=== PATIENT | male | born 1950 | race Caucasian/White ===

== ENCOUNTER 2024-03-30 16:19 | Inpatient (IN) | payer MEDICARE, OTHER ==
[~2024-03-30] VITALS: Ht 185.4 cm; Wt 69.4 kg
[~2024-03-30 16:19] MED LIST: ASPI-1169 PO; DIGO125T PO; METO-357 PO; RIVA10TA PO
[2024-03-30 17:15] LABS: BASOPHILS # (AUTO) 0.1 K/uL (0.0-0.2); BASOPHILS % (AUTO) 0.8 % (0.0-2.0); EOSINOPHILS # (AUTO) 0.1 K/uL (0.0-0.7); EOSINOPHILS % (AUTO) 2.3 % (0.0-6.0); HEMATOCRIT 39 % (39-51); LYMPHOCYTES # (AUTO) 1.6 K/uL (0.8-4.8); LYMPHOCYTES % (AUTO) 25.4 % (20.0-44.0); MEAN CORPUSCULAR HEMOGLOBIN 29 PG (26.0-33.0); MEAN CORPUSCULAR HGB CONC 33 g/dl (31.0-36.0); MEAN CORPUSCULAR VOLUME 86 fL (80-96); MONOCYTES # (AUTO) 0.9 K/uL (0.1-1.30); MONOCYTES % (AUTO) 13.7 % (2.0-12.0); NEUTROPHILS # (AUTO) 3.7 K/uL (1.8-8.9); NEUTROPHILS % (AUTO) 57.8 % (43.0-81.0); PLATELET COUNT (AUTO) 205 K/uL (150-450); RED BLOOD CELL COUNT(AUTO) 4.54 MIL/uL (4.5-6.0); RED CELL DISTRIBUTION WIDTH 16.2 % (11.5-15.0); WHITE BLOOD COUNT (AUTO) 6.4 K/uL (4.3-11.0)
[2024-03-30] MEDS ORDERED: DIGO250T PO (17:25)
[2024-03-30] MEDS ORDERED: METO50TA16 PO (17:25)
[2024-03-30 17:26] LABS: CALCIUM, SERUM 9.1 mg/dL (8.5-10.1); CARBON DIOXIDE 28 mmol/L (21-32); CHLORIDE 106 mmol/L (98-107); CREATININE 1.3 mg/dL (0.6-1.3); GLUCOSE 106 mg/dL (74-106); POTASSIUM 3.9 mmol/L (3.5-5.1); SODIUM SERUM 143 mmol/L (136-145); UREA NITROGEN, BLOOD 17 mg/dL (7-18)
[2024-03-30] MEDS ORDERED: NITROGLYCERIN 0.4 MG/TAB BOTTLE ONE (17:31)
[2024-03-30] MEDS ORDERED: ASPIRIN 325 MG TABLET ONE (17:32)
[2024-03-30] MEDS: NITROGLYCERIN 0.4 MG/TAB BOTTLE SL ONE (17:35)
[2024-03-30] MEDS: ASPIRIN 325 MG TABLET PO ONE (17:35)
[2024-03-30 17:45] LABS: NT-PRO BNP 177 pg/mL (0-125)
[2024-03-30] MEDS ORDERED: TEMAZEPAM 15 MG CAPSULE PO PRN (18:00)
[2024-03-30] MEDS ORDERED: MAGNESIUM HYDROXIDE 30 ML UDC PO PRN (18:00)
[2024-03-30] MEDS ORDERED: ONDANSETRON HCL/PF 4 MG/2 ML VIAL IVP PRN (18:00)
[2024-03-30] MEDS ORDERED: Z GUARD REMEDY 4 OZ OINT TP PRN (18:00)
[2024-03-30] MEDS ORDERED: NITROGLYCERIN 0.4 MG/TAB BOTTLE SL PRN (18:00)
[2024-03-30] MEDS ORDERED: MAG HYDROX/AL HYDROX/SIMETH 30 ML UDC PO PRN (18:00)
[2024-03-30 20:00] VITALS: BP 140/82; TEMP 97.3; O2SAT 98
[2024-03-31] VITALS (7 sets, daily range): BP systolic 102–123; BP diastolic 60–74; TEMP 97.5–98.6; O2SAT 95–100
[2024-03-31] MEDS: MORPHINE SULFATE INJ 2 MG/ML DISP.SYRIN IV PRN (05:47)
[2024-03-31 06:50] LABS: BASOPHILS % (AUTO) 0.8 % (0.0-2.0); EOSINOPHILS # (AUTO) 0.2 K/uL (0.0-0.7); EOSINOPHILS % (AUTO) 5.1 % (0.0-6.0); HEMATOCRIT 40 % (39-51); HEMOGLOBIN 13.3 g/dL (13.5-17.5); LYMPHOCYTES # (AUTO) 1.3 K/uL (0.8-4.8); LYMPHOCYTES % (AUTO) 27.1 % (20.0-44.0); MEAN CORPUSCULAR HEMOGLOBIN 29 PG (26.0-33.0); MEAN CORPUSCULAR HGB CONC 33 g/dl (31.0-36.0); MEAN CORPUSCULAR VOLUME 86 fL (80-96); MONOCYTES # (AUTO) 0.7 K/uL (0.1-1.30); MONOCYTES % (AUTO) 14.6 % (2.0-12.0); NEUTROPHILS # (AUTO) 2.4 K/uL (1.8-8.9); NEUTROPHILS % (AUTO) 52.4 % (43.0-81.0); PLATELET COUNT (AUTO) 217 K/uL (150-450); RED BLOOD CELL COUNT(AUTO) 4.63 MIL/uL (4.5-6.0); RED CELL DISTRIBUTION WIDTH 16.9 % (11.5-15.0); WHITE BLOOD COUNT (AUTO) 4.7 K/uL (4.3-11.0)
[2024-03-31 07:29] LABS: CALCIUM, SERUM 9.2 mg/dL (8.5-10.1); CARBON DIOXIDE 28 mmol/L (21-32); CHLORIDE 110 mmol/L (98-107); CREATININE 1.2 mg/dL (0.6-1.3); GLUCOSE 101 mg/dL (74-106); MAGNESIUM 2.4 mg/dL (1.8-2.4); PHOSPHORUS 3.3 mg/dL (2.5-4.9); POTASSIUM 5.1 mmol/L (3.5-5.1); SODIUM SERUM 146 mmol/L (136-145); UREA NITROGEN, BLOOD 16 mg/dL (7-18)
[2024-03-31 07:35] LABS: CHOLESTEROL 172 mg/dL (<200); HDL CHOLESTEROL 46 mg/dL (40-60); LDL 99 mg/dL (0-99); TRIGLYCERIDES 121 mg/dL (30-150)
[2024-03-31] MEDS: PANTOPRAZOLE 40 MG TABLET.DR PO SCH (07:38)
[2024-03-31] MEDS: ASPIRIN 81 MG TAB.CHEW PO SCH (08:53)
[2024-03-31] MEDS: RIVAROXABAN 10 MG TABLET PO SCH (08:54)
[2024-03-31] MEDS: ATORVASTATIN 40 MG TABLET PO SCH (09:00)
[2024-03-31] MEDS: METOPROLOL TARTRATE 50 MG TABLET PO SCH (09:01)
[2024-03-31] MEDS: DIGOXIN 0.25 MG TABLET PO SCH (09:02)
[2024-03-31 10:40] LABS: APPEARANCE,URINE TURBID (CLEAR); COLOR,URINE RED (YELLOW)
[2024-03-31 11:03] LABS: BACTERIA,URINE Rare /HPF (None Seen); RBC,URINE TOO NUMEROUS TO COUN /HPF (0-2); SQUAMOUS EPITHELIAL CELL,UR None Seen /HPF (None Seen)
[2024-03-31] MEDS: HYDROCODONE/APAP 5/325MG TABLET PO PRN (11:56)
[2024-03-31] MEDS ORDERED: METOPROLOL TARTRATE INJ 5 MG/5 ML AMPUL ONE (19:05)
[2024-03-31] MEDS ORDERED: NITROGLYCERIN 0.4 MG/TAB BOTTLE ONE (19:05)
[2024-03-31] MEDS: METOPROLOL TARTRATE INJ 5 MG/5 ML AMPUL IVP PRN (19:20)
[2024-03-31] MEDS: NITROGLYCERIN 0.4 MG/TAB BOTTLE SL ONE (19:45)
[2024-04-01] VITALS (8 sets, daily range): BP systolic 102–120; BP diastolic 66–77; TEMP 97.7–98.4; O2SAT 65–97
[2024-04-01 06:38] LABS: CALCIUM, SERUM 9.2 mg/dL (8.5-10.1); CARBON DIOXIDE 26 mmol/L (21-32); CHLORIDE 107 mmol/L (98-107); CREATININE 1.1 mg/dL (0.6-1.3); GLUCOSE 89 mg/dL (74-106); POTASSIUM 5.2 mmol/L (3.5-5.1); SODIUM SERUM 141 mmol/L (136-145); UREA NITROGEN, BLOOD 18 mg/dL (7-18)
[2024-04-01] MEDS: ACETAMINOPHEN 325 MG TABLET PO PRN (16:22)
[2024-04-02 07:00] VITALS: BP 125/80; TEMP 98.2; O2SAT 95
[2024-04-02 09:13] VITALS: BP 125/80
[2024-04-02 16:00] VITALS: BP 105/73; TEMP 97.4; O2SAT 98
== END 2024-04-02 15:15 | DRG 303 ==
LOC: ER 16:54 → TELE 18:31 → MED 04-01 13:27
PROVIDERS: ADMIT Nurse Practitioner Acute Care; ATTEND Nurse Practitioner Acute Care
DX: I25.10 Atherosclerotic heart disease of native coronary artery without angina pectoris (principal); I48.0 Paroxysmal atrial fibrillation; Z85.46 Personal history of malignant neoplasm of prostate; Z79.01 Long term (current) use of anticoagulants; I25.2 Old myocardial infarction; Z98.890 Other specified postprocedural states; K40.90 Unilateral inguinal hernia, without obstruction or gangrene, not specified as recurrent; I10 Essential (primary) hypertension; Z88.0 Allergy status to penicillin; Z88.1 Allergy status to other antibiotic agents; Z88.8 Allergy status to other drugs, medicaments and biological substances; Z79.899 Other long term (current) drug therapy; Z79.82 Long term (current) use of aspirin; Z87.891 Personal history of nicotine dependence; F12.91 Cannabis use, unspecified, in remission; Z86.79 Personal history of other diseases of the circulatory system; C61 Malignant neoplasm of prostate; Z90.79 Acquired absence of other genital organ(s); Z87.442 Personal history of urinary calculi; N40.0 Benign prostatic hyperplasia without lower urinary tract symptoms; K80.20 Calculus of gallbladder without cholecystitis without obstruction; R53.1 Weakness
CPT/HCPCS: 36415; 71045-TC; 75574; 80048-TC; 80061-TC; 80162-TC; 81001; 83735-TC; 83880; 84100-TC; 84443-TC; 84484-TC; 85025-TC; 93307-TC; 97112-TC; 97116-TC; 97530-TC; G0378; J2270; J3490

== ENCOUNTER 2024-04-30 21:42 | Inpatient (IN) | payer MEDICARE, OTHER ==
[~2024-04-30] VITALS: Ht 185.4 cm; Wt 73.9 kg
[~2024-04-30 21:42] MED LIST changes: -DIGO125T PO; +DIGO250T PO; -METO-357 PO; +METO50TA16 PO
[2024-04-30] MEDS ORDERED: NITROGLYCERIN 0.4 MG/TAB BOTTLE ONE (22:53)
[2024-04-30] MEDS ORDERED: ASPIRIN 325 MG TABLET ONE (22:53)
[2024-04-30 23:02] LABS: BASOPHILS # (AUTO) 0.1 K/uL (0.0-0.2); BASOPHILS % (AUTO) 0.6 % (0.0-2.0); EOSINOPHILS # (AUTO) 0.4 K/uL (0.0-0.7); EOSINOPHILS % (AUTO) 4.2 % (0.0-6.0); HEMATOCRIT 37 % (39-51); HEMOGLOBIN 12.3 g/dL (13.5-17.5); LYMPHOCYTES # (AUTO) 1.5 K/uL (0.8-4.8); LYMPHOCYTES % (AUTO) 17.5 % (20.0-44.0); MEAN CORPUSCULAR HEMOGLOBIN 29 PG (26.0-33.0); MEAN CORPUSCULAR HGB CONC 33 g/dl (31.0-36.0); MEAN CORPUSCULAR VOLUME 86 fL (80-96); MONOCYTES # (AUTO) 1.2 K/uL (0.1-1.30); MONOCYTES % (AUTO) 13.4 % (2.0-12.0); NEUTROPHILS # (AUTO) 5.6 K/uL (1.8-8.9); NEUTROPHILS % (AUTO) 64.3 % (43.0-81.0); PLATELET COUNT (AUTO) 196 K/uL (150-450); RED BLOOD CELL COUNT(AUTO) 4.28 MIL/uL (4.5-6.0); RED CELL DISTRIBUTION WIDTH 15.8 % (11.5-15.0); WHITE BLOOD COUNT (AUTO) 8.6 K/uL (4.3-11.0)
[2024-04-30 23:11] LABS: CALCIUM, SERUM 8.9 mg/dL (8.5-10.1); CARBON DIOXIDE 27 mmol/L (21-32); CHLORIDE 108 mmol/L (98-107); CREATININE 1.3 mg/dL (0.6-1.3); GLUCOSE 97 mg/dL (74-106); POTASSIUM 4.5 mmol/L (3.5-5.1); SODIUM SERUM 145 mmol/L (136-145); UREA NITROGEN, BLOOD 15 mg/dL (7-18)
[2024-04-30 23:23] LABS: NT-PRO BNP 323 pg/mL (0-125)
[2024-04-30] MEDS: ASPIRIN 325 MG TABLET PO ONE (23:31)
[2024-04-30] MEDS: NITROGLYCERIN 0.4 MG/TAB BOTTLE SL ONE (23:31)
[2024-05-01] MEDS ORDERED: MAG HYDROX/AL HYDROX/SIMETH 30 ML UDC PO PRN (00:30)
[2024-05-01] MEDS ORDERED: Z GUARD REMEDY 4 OZ OINT TP PRN (00:30)
[2024-05-01] MEDS ORDERED: ACETAMINOPHEN 650 MG/SUPP.RECT RC PRN (00:30)
[2024-05-01] MEDS: MORPHINE SULFATE INJ 2 MG/ML DISP.SYRIN IV PRN (01:59)
[2024-05-01 04:00] VITALS: BP 113/77; TEMP 97.7; O2SAT 98
[2024-05-01 08:00] VITALS: BP 126/68; TEMP 97.5; O2SAT 99
[2024-05-01] MEDS ORDERED: RIVAROXABAN 10 MG TABLET PO SCH (09:00)
[2024-05-01] MEDS: DIGOXIN 0.25 MG TABLET PO SCH (09:09)
[2024-05-01] MEDS: PANTOPRAZOLE 40 MG VIAL IV SCH (09:10)
[2024-05-01] MEDS: ASPIRIN 81 MG TAB.CHEW PO SCH (09:10)
[2024-05-01] MEDS: DOCUSATE SODIUM 100 MG CAPSULE PO SCH (09:10)
[2024-05-01] MEDS: METOPROLOL TARTRATE 50 MG TABLET PO SCH (09:10)
[2024-05-01 12:00] VITALS: BP 123/90; TEMP 97.7
[2024-05-01] MEDS: BISACODYL (5 MG) 5 MG TABLET.DR PO ONE (16:11)
[2024-05-01] MEDS ORDERED: RIVAROXABAN 15 MG TABLET PO SCH (18:00)
[2024-05-01 20:00] VITALS: BP 120/81; TEMP 97.7; O2SAT 96
[2024-05-01 23:48] VITALS: BP 128/78; TEMP 97.5; O2SAT 100
[2024-05-02 05:00] VITALS: BP 135/82; TEMP 97.9; O2SAT 100
[2024-05-02 08:00] VITALS: BP 123/91; TEMP 97.9; O2SAT 100
[2024-05-02 08:27] LABS: ALANINE AMINOTRANSFERASE 19 U/L (12-78); ALBUMIN 3.5 g/dL (3.4-5.0); ALKALINE PHOSPHATASE 36 U/L (46-116); ASPARTATE AMINOTRANSFERASE 18 U/L (15-37); BILIRUBIN,TOTAL 0.6 mg/dL (0.2-1.0); CALCIUM, SERUM 8.7 mg/dL (8.5-10.1); CARBON DIOXIDE 29 mmol/L (21-32); CHLORIDE 109 mmol/L (98-107); CREATININE 1.1 mg/dL (0.6-1.3); GLUCOSE 105 mg/dL (74-106); MAGNESIUM 2.2 mg/dL (1.8-2.4); PHOSPHORUS 3.2 mg/dL (2.5-4.9); POTASSIUM 5.2 mmol/L (3.5-5.1); SODIUM SERUM 143 mmol/L (136-145); TOTAL PROTEIN, SERUM 6.8 g/dL (6.4-8.2); UREA NITROGEN, BLOOD 13 mg/dL (7-18)
[2024-05-02] MEDS: PANTOPRAZOLE 40 MG TABLET.DR PO SCH (08:28)
[2024-05-02 08:30] LABS: BASOPHILS % (AUTO) 0.4 % (0.0-2.0); EOSINOPHILS # (AUTO) 0.3 K/uL (0.0-0.7); HEMATOCRIT 38 % (39-51); HEMOGLOBIN 12.5 g/dL (13.5-17.5); LYMPHOCYTES # (AUTO) 0.8 K/uL (0.8-4.8); MEAN CORPUSCULAR HEMOGLOBIN 28 PG (26.0-33.0); MEAN CORPUSCULAR HGB CONC 33 g/dl (31.0-36.0); MEAN CORPUSCULAR VOLUME 87 fL (80-96); MONOCYTES # (AUTO) 0.7 K/uL (0.1-1.30); MONOCYTES % (AUTO) 12.2 % (2.0-12.0); NEUTROPHILS # (AUTO) 3.7 K/uL (1.8-8.9); NEUTROPHILS % (AUTO) 67.4 % (43.0-81.0); PLATELET COUNT (AUTO) 197 K/uL (150-450); RED BLOOD CELL COUNT(AUTO) 4.41 MIL/uL (4.5-6.0); WHITE BLOOD COUNT (AUTO) 5.5 K/uL (4.3-11.0)
[2024-05-02 09:21] LABS: INR 0.97 (0.91-1.10); PARTIAL THROMBOPLASTIN TIME 25.6 SEC (24.3-34.3); PROTHROMBIN TIME 10.3 SECS (9.2-11.1)
[2024-05-02 09:25] LABS: DIGOXIN < 0.20 ng/mL (0.90-2.00)
[2024-05-02] MEDS ORDERED: IV NS 0.9% 500 ML IV ONE (10:19)
[2024-05-02] MEDS ORDERED: IV SET PRIMARY PUMP SET 1 EA INFUS.SET MC ONE (10:19)
[2024-05-02] MEDS ORDERED: LIDOCAINE HCL/MPF 1% 30 ML VIAL IJ ONE (10:20)
[2024-05-02] MEDS ORDERED: NITROGLYCERIN IN 5 % DEXTROSE 250 ML IV ONE (10:20)
[2024-05-02] MEDS ORDERED: IODIXANOL 150 ML IV ONE (10:20)
[2024-05-02] MEDS ORDERED: FENTANYL PF 100MCG/2ML AMPUL ONE (10:45)
[2024-05-02] MEDS ORDERED: MIDAZOLAM HCL 2 MG/2ML VIAL ONE (10:45)
[2024-05-02 12:00] VITALS: BP 125/79; TEMP 97.9; O2SAT 99
[2024-05-02 16:00] VITALS: BP 108/77; TEMP 98.1; O2SAT 97
[2024-05-02 20:00] VITALS: BP 129/67; TEMP 97.9; O2SAT 98
[2024-05-02 23:59] VITALS: BP 120/83; TEMP 97.9; O2SAT 98
[2024-05-03 05:31] VITALS: BP 128/67; TEMP 97.9; O2SAT 98
[2024-05-03] MEDS: ATORVASTATIN 10 MG TABLET PO SCH (08:12)
[2024-05-03 08:32] VITALS: BP 135/78; TEMP 98.1; O2SAT 99
== END 2024-05-03 10:25 | disposition home or self-care (01) | DRG 287 ==
LOC: ER 21:46 → TELE 05-01 00:43
PROC: 4A023N7 Measurement of Cardiac Sampling and Pressure, Left Heart, Percutaneous Approach (ICD-10-PCS; principal; 2024-05-02)
PROC: B211YZZ Fluoroscopy of Multiple Coronary Arteries using Other Contrast (ICD-10-PCS; 2024-05-02)
PROC: B34HZZZ Ultrasonography of Right Upper Extremity Arteries (ICD-10-PCS; 2024-05-02)
DX: I25.110 Atherosclerotic heart disease of native coronary artery with unstable angina pectoris (principal); I10 Essential (primary) hypertension; I48.91 Unspecified atrial fibrillation; Z79.01 Long term (current) use of anticoagulants; I25.2 Old myocardial infarction; Z79.82 Long term (current) use of aspirin; Z87.891 Personal history of nicotine dependence; Z88.0 Allergy status to penicillin; Z85.46 Personal history of malignant neoplasm of prostate; Z90.79 Acquired absence of other genital organ(s); Z95.5 Presence of coronary angioplasty implant and graft; K40.90 Unilateral inguinal hernia, without obstruction or gangrene, not specified as recurrent
CPT/HCPCS: 36415; 71045-TC; 80048-TC; 80053-TC; 80162-TC; 83735-TC; 83880; 84100-TC; 84484-TC; 85025-TC; 85610-TC; 85730-TC; 86850-TC; A4223; G0378; J1644; J2250; J2270; J2470; J3010; J3490; J7040; Q9967

== ENCOUNTER 2024-05-30 00:31 | Emergency (ER) | payer MEDICARE, OTHER ==
[~2024-05-30] VITALS: Ht 182.9 cm; Wt 63.5 kg
[2024-05-30 01:09] LABS: BASOPHILS % (AUTO) 0.6 % (0.0-2.0); EOSINOPHILS # (AUTO) 0.2 K/uL (0.0-0.7); EOSINOPHILS % (AUTO) 2.3 % (0.0-6.0); HEMATOCRIT 37 % (39-51); HEMOGLOBIN 12.3 g/dL (13.5-17.5); LYMPHOCYTES # (AUTO) 1.4 K/uL (0.8-4.8); LYMPHOCYTES % (AUTO) 18.9 % (20.0-44.0); MEAN CORPUSCULAR HEMOGLOBIN 29 PG (26.0-33.0); MEAN CORPUSCULAR HGB CONC 33 g/dl (31.0-36.0); MEAN CORPUSCULAR VOLUME 88 fL (80-96); MONOCYTES # (AUTO) 0.9 K/uL (0.1-1.30); MONOCYTES % (AUTO) 12.3 % (2.0-12.0); NEUTROPHILS # (AUTO) 4.8 K/uL (1.8-8.9); NEUTROPHILS % (AUTO) 65.9 % (43.0-81.0); PLATELET COUNT (AUTO) 165 K/uL (150-450); RED BLOOD CELL COUNT(AUTO) 4.22 MIL/uL (4.5-6.0); RED CELL DISTRIBUTION WIDTH 15.7 % (11.5-15.0); WHITE BLOOD COUNT (AUTO) 7.3 K/uL (4.3-11.0)
[2024-05-30 01:19] LABS: CALCIUM, SERUM 8.9 mg/dL (8.5-10.1); CARBON DIOXIDE 29 mmol/L (21-32); CHLORIDE 108 mmol/L (98-107); CREATININE 1.2 mg/dL (0.6-1.3); GLUCOSE 102 mg/dL (74-106); POTASSIUM 4.2 mmol/L (3.5-5.1); SODIUM SERUM 141 mmol/L (136-145); UREA NITROGEN, BLOOD 24 mg/dL (7-18)
[2024-05-30] MEDS ORDERED: IV NS 0.9% 250 ML IV ONE (01:24)
[2024-05-30] MEDS ORDERED: IOHEXOL-350 100 ML VIAL IV ONE (01:24)
[2024-05-30 01:25] LABS: ALANINE AMINOTRANSFERASE 16 U/L (12-78); ALKALINE PHOSPHATASE 41 U/L (46-116); ASPARTATE AMINOTRANSFERASE 18 U/L (15-37); BILIRUBIN,DIRECT 0.1 mg/dL (0.0-0.2); BILIRUBIN,TOTAL 0.4 mg/dL (0.2-1.0); TOTAL PROTEIN, SERUM 6.9 g/dL (6.4-8.2)
[2024-05-30 01:26] LABS: INR 1.03 (0.91-1.10); PROTHROMBIN TIME 10.9 SECS (9.2-11.1)
[2024-05-30] MEDS ORDERED: NITROGLYCERIN 0.4 MG/TAB BOTTLE ONE (01:40)
[2024-05-30] MEDS ORDERED: ASPIRIN 325 MG TABLET ONE (01:40)
[2024-05-30] MEDS: ASPIRIN 325 MG TABLET PO ONE (01:44)
[2024-05-30] MEDS: NITROGLYCERIN 0.4 MG/TAB BOTTLE SL ONE (01:44)
[2024-05-30 05:04] VITALS: BP 128/73; TEMP 98.3; O2SAT 97
== END 2024-05-30 05:04 | disposition home or self-care (01) ==
LOC: ER 00:44
DX: R07.89 Other chest pain (principal); G89.29 Other chronic pain; I10 Essential (primary) hypertension; I48.91 Unspecified atrial fibrillation; K80.20 Calculus of gallbladder without cholecystitis without obstruction; Z79.01 Long term (current) use of anticoagulants; Z79.82 Long term (current) use of aspirin; Z79.899 Other long term (current) drug therapy; Z85.46 Personal history of malignant neoplasm of prostate; Z87.891 Personal history of nicotine dependence; Z88.0 Allergy status to penicillin; Z88.1 Allergy status to other antibiotic agents; Z88.5 Allergy status to narcotic agent; Z90.79 Acquired absence of other genital organ(s); Z95.5 Presence of coronary angioplasty implant and graft
CPT/HCPCS: 99285; 71275; 93005; 85025; 80048; 80162; 80076; 36415; 84484 ×2; 85730; J7050; Q9967